=== PATIENT | male | born 1960 | race African-American/Black ===

== ENCOUNTER 2023-04-14 10:54 | Emergency (ER) | payer BC ==
[2023-04-14] MEDS ORDERED: Acetaminophen 500 MG TAB ONE (11:21)
[2023-04-14] MEDS ORDERED: Ibuprofen 200 MG TAB ONE (11:21)
[2023-04-14] MEDS ORDERED: guaiFENesin/Codeine Phosphate 100 mg/10 mg 5 ml UD Cup ONE ×2 (11:52→11:53)
[2023-04-14 12:26] LABS: SARS-CoV-2 NAA Rapid Test Not Detected (NotDetected)
== END 2023-04-14 12:56 | disposition home or self-care (01) ==
LOC: CSHERS 10:54
DX: J06.9 Acute upper respiratory infection, unspecified (principal); F17.200 Nicotine dependence, unspecified, uncomplicated
CPT/HCPCS: 71045